=== PATIENT | female | born 1985 | race Caucasian/White ===

== ENCOUNTER 2018-06-28 07:44 | Emergency (ER) | payer OTHER, SELFPAY ==
[2018-06-28] MEDS ORDERED: TETANUS & DIPHTHERIA TOX,ADULT 0.5 ML VIAL ONE (08:04)
[2018-06-28] MEDS ORDERED: HYDROCODONE/APAP 5/325 MG TAB ONE (08:11)
--- NOTE | 2018-06-28 10:46 | RAD REPORT ---
EXAM DESCRIPTION: [place] Single View06/28/2018 8:52 am CLINICAL HISTORY: Chest pain COMPARISON: 2014 FINDINGS: The lungs appear clear of acute infiltrate. The heart is normal size IMPRESSION: No acute abnormalities displayed
--- NOTE | 2018-06-28 10:48 | RAD REPORT ---
EXAM DESCRIPTION: RAD - Knee Right 3 View - 06/28/2018 8:51 am CLINICAL HISTORY: Right hip pain FINDINGS: No fracture or dislocation is seen. Soft tissue swelling anteriorly
--- NOTE | 2018-06-28 12:36 | RAD REPORT ---
EXAM DESCRIPTION: RAD - C Spine W Obliques - 06/28/2018 11:24 am CLINICAL HISTORY: Neck pain status post injury FINDINGS: Loss of the normal lordosis of the cervical spine may be secondary to muscle spasm. No fracture or dislocation is seen.
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
[2018-06-28 13:31] VITALS: TEMP 97.6
[2018-06-28 13:37] VITALS: BP 97/64; O2SAT 100
== END 2018-06-28 13:23 | disposition home or self-care (01) ==
LOC: ER 07:44
DX: M23.8X1 Other internal derangements of right knee (principal); M79.9 Soft tissue disorder, unspecified; S80.211A Abrasion, right knee, initial encounter; Z23 Encounter for immunization; F17.210 Nicotine dependence, cigarettes, uncomplicated; V49.9XXA Car occupant (driver) (passenger) injured in unspecified traffic accident, initial encounter; Y92.410 Unspecified street and highway as the place of occurrence of the external cause
CPT/HCPCS: 71045; 72050; 82962; 90714; 99284